=== PATIENT | female | born 1980 ===

== ENCOUNTER 2024-12-06 15:18 | Emergency (ER) | payer OTHER ==
[2024-12-06] MEDS ORDERED: KETOROLAC 30 MG/ML INJ ONE (15:53)
[2024-12-06] MEDS ORDERED: ONDANSETRON 4 MG/2 ML VIAL ONE (15:53)
[2024-12-06] MEDS ORDERED: NA CHLORIDE 0.9% 1,000 ML ONE (15:53)
[2024-12-06 16:03] LABS: Absolute Lymphocytes (CBC) 1.0 K/uL (0.7-4.9); Hematocrit 38.1 % (36.0-45.0); Hemoglobin 12.8 g/dL (12.0-15.0); MCH 27.5 pg (27.0-35.0); MCHC 33.5 g/dL (32.0-36.0); MCV 82.0 fL (80-100); MPV 8.1 fL (7.6-11.3); Nucleated RBC Absolute Count 0.0 (0-0); Nucleated Red Blood Cells % 0.0 % (0-0); RBC Red Blood Cell Count 4.64 M/uL (3.86-4.86); White Blood Count 6.80 thou/uL (4.3-10.9)
[2024-12-06 16:19] LABS: Urine Culture Reflex Order NOT NEEDED; Urine Microscopic Reflex YN ORDER UMIC
[2024-12-06 16:19] LABS: ALT/SGPT 18.0 U/L (13-56); AST/SGOT 12.0 U/L (15-37); Albumin 3.7 g/dL (3.4-5.0); Albumin/Globulin Ratio 0.9 (1.1-1.8); Alkaline Phosphatase 101.0 U/L (45-117); Anion Gap 10.7 mEq/L (5.0-15.0); BUN Blood Urea Nitrogen 15.0 mg/dL (7-18); Globulin 4.1 g/dL (2.3-3.5); Glucose Level 132.0 mg/dL (74-106); Lipase 36.0 U/L (13-75); Potassium 3.7 mEq/L (3.5-5.1)
--- NOTE | 2024-12-06 17:18 | RAD REPORT ---
EXAMINATION: Abdomen Pelvis W Contrast CLINICAL INDICATION: Female, 44 years old.FLANK PAIN TECHNIQUE: CT abdomen and pelvis was performed, after the administration of IV contrast, [facility]. Axial, sagittal and coronal reconstructions were obtained. One or more of the following dose reduction techniques were used: Automated exposure control, adjustment of the mA and/o r kV according to patient size, and/or iterative reconstruction. Unless otherwise specified, incidental findings do not require dedicated imaging follow-up. [id number]. COMPARISON: No prior exams FINDINGS: LOWER CHEST: No acute process identified.No significant pericardial effusion. Moderate hiatal hernia UPPER GI: No significant abnormality. LIVER: Hepatic steatosis, but otherwise unremarkable. GALLBLADDER/BILE DUCTS: Cholelithiasis without CT evidence of acute cholecystitis.? PANCREAS: No mass, ductal dilation, or james-pancreatic fluid. SPLEEN: Unremarkable. ADRENALS: No adrenal masses. KIDNEYS AND URETERS: Mild left-sided hydroureteronephrosis. This is secondary to a 3 mm stone at the left UVJ.No suspicious renal mass.No renal calculi. ABDOMINAL AORTA AND OTHER VESSELS: Normal caliber aorta and IVC. PERITONEUM: No abnormal free fluid. No free air. LYMPH NODES: No pathologic lymphadenopathy. ABDOMINAL WALL: Unremarkable SMALL BOWEL/COLON: Small bowel has normal course and caliber. No colonic wall thickening or pericolon ic inflammatory changes.Appendectomy URINARY BLADDER: Underdistended but grossly unremarkable. REPRODUCTIVE ORGANS: No pathologic process. MUSCULOSKELETAL: Severe disc height loss L5-S1. No acute fracture. ADDITIONAL FINDINGS: None. IMPRESSION: Mild left-sided hydroureteronephrosis secondary to a 3 mm stone at the left UVJ.
[2024-12-06] MEDS ORDERED: TAMSULOSIN 0.4 MG SR CAP ONE (17:27)
--- NOTE | 2024-12-06 17:37 | EDPHYS ---
Physician Documentation [facility] Name: Juhi Chandra Age: 44 yrs Sex: Female : 1980 Arrival Date: 12/06/2024 Time: 15:18 Bed 19 Private MD: ED Physician Jonnie Miller HPI: 12/06 15:56 This 44 yrs old Female presents to ER via Ambulatory with complaints of Possible Kidney sb4 Stone. 15:56 Patient reports left flank pain since yesterday. States that it comes in waves, but sb4 feels similar to when she has had kidney stones in the past. States that she has had some urinary frequency and burning with urination as well. Denies any blood in her urine. Denies any fever or chills. 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 - Infectious Disease History:: Denies. - Social history:: Smoking status: Patient denies any tobacco usage or history of. ROS: 15:56 Constitutional: Negative for fever, chills, and weight loss, sb4 15:56 Abdomen/GI: Positive for nausea and vomiting, 15:56 Back: Positive for flank pain, on the left, 15:56 All other systems are negative, Exam: 15:56 Head/Face: Normocephalic, atraumatic. Eyes: Extra-ocular motions intact. Periorbital sb4 areas with no swelling, redness, or edema. ENT: Mucous membranes moist. Cardiovascular: Regular rate and rhythm with a normal S1 and S2. Respiratory: No increased work of breathing, no retractions or nasal flaring. Abdomen/GI: Soft, non-tender, no distension. Back: No spinal tenderness. No costovertebral tenderness. Full range of motion. Skin: Warm, dry with normal turgor. Normal color with no rashes, no lesions, and no evidence of cellulitis. 15:56 Constitutional: The patient appears alert, awake, uncomfortable, Vital Signs: 15:43 BP 155 / 111; Pulse 79; Resp 17; Temp 97; Pulse Ox 100% ; Weight 90.72 kg; Height 5 ft. hb 3 in. ; Pain 5/10; 16:00 BP 140 / 75; Pulse 58; Resp 16; Pulse Ox 100% ; me1 17:00 BP 133 / 73; Pulse 76; Resp 16; Pulse Ox 100% ; me1 17:51 BP 122 / 72; Pulse 71; Resp 16; Temp 98.5; Pulse Ox 100% ; me1 15:43 Body Mass Index 35.43 (90.72 kg, 160.02 cm) hb 15:43 Pain Scale: Adult hb MDM: 15:20 Medical Screening Exam initiated sb4 15:57 Differential diagnosis: UTI, Pyelonephritis, ureterolithiasis, nephrolithiasis, back sb4 strain. 17:37 Data reviewed: vital signs, nurses notes, lab test result(s), radiologic studies, and sb4 as a result, I will discharge patient. Counseling: I had a detailed discussion with the patient and/or guardian regarding the historical points, exam findings, and any diagnostic results supporting the discharge/admit diagnosis, lab results, radiology results, the need for outpatient follow up, a urologist, to return to the emergency department if symptoms worsen or persist or if there are any questions or concerns that arise at home. ED course: Patient states her pain is improved, she thinks she passed her kidney stone. I will safely discharge her home at this time with urology follow-up. 12/06 15:41 Order name: CBC with Diff; Complete Time: 16:14 sb4 12/06 15:41 Order name: CMP; Complete Time: 16:20 sb4 12/06 15:41 Order name: Lipase; Complete Time: 16:20 sb4 12/06 15:41 Order name: UA Rfx Frankie Cult if indicated; Complete Time: 16:20 sb4 12/06 15:41 Order name: Test, Urine; Complete Time: 16:20 sb4 12/06 15:41 Order name: CT Abd/Pelvis - IV Contrast Only; Complete Time: 17:22 sb4 12/06 15:41 Order name: IV Saline Lock; Complete Time: 15:51 sb4 12/06 15:41 Order name: Labs collected and sent; Complete Time: 15:51 sb4 Administered Medications: 15:59 Drug: Ondansetron IVP 4 mg IVP once; over 2 minutes Route: IVP; Site: right antecubital;me1 16:31 Follow up: Response: No adverse reaction; Nausea is decreased me1 15:59 Drug: NS 0.9% IV 1000 ml IV at 1 bolus Per protocol; to be given as a bolus over 60 me1 minutes Route: IV; Rate: 1 bolus; Site: right antecubital; 17:51 Follow up: Response: No adverse reaction; IV Status: Completed infusion; IV Intake: me1 1000ml 16:00 Drug: TORadol - Ketorolac IVP 15 mg IVP once Route: IVP; Site: right antecubital; me1 16:31 Follow up: Response: No adverse reaction; Pain is decreased me1 17:29 Drug: Flomax PO 0.4 mg PO once Route: PO; me1 17:51 Follow up: Response: No adverse reaction me1 Disposition: 18:28 Co-signature as Attending Physician, Jonnie Miller MD I reviewed the patient's care rn provided by the Advanced Practice Provider and agree with the diagnosis and treatment plan. Disposition Summary: 12/06/24 17:37 Discharge Ordered Notes: Location: Home sb4 Problem: new sb4 Symptoms: have improved sb4 Condition: Stable sb4 Diagnosis - Calculus of kidney with calculus of ureter - left, 3 mm sb4 Followup: sb4 - With: Faustino Briggs MD - When: As needed - Reason: Recheck today's complaints, Re-evaluation by your physician Discharge Instructions: - Discharge Summary Sheet sb4 - Kidney Stones sb4 Forms: - Patient Portal Instructions sb4 - Leadership Thank You Letter sb4 Signatures: Dispatcher [employer] Jonnie Dai MD MD rn Baxter, Heather RN Olga Mcpherson PA-C PA-C sb4 Karen Gray RN RN me1 Corrections: (The following items were deleted from the chart) 15:42 15:42 CBC+H.LAB.BRZ ordered. EDMS EDMS 15:42 15:42 COMPREHENSIVE METABOLIC PANEL+C.LAB.BRZ ordered. EDMS EDMS 15:42 15:42 LIPASE+C.LAB.BRZ ordered. EDMS EDMS 15:42 15:42 UA Rfx Frankie Cult if indicated+U.LAB.BRZ ordered. EDMS EDMS 15:42 15:42 Test, Urine+UC.LAB.BRZ ordered. EDMS EDMS 15 15:42 Abdomen Pelvis W Con+CT.RAD.BRZ ordered. EDMS EDMS 15 15:44 Home Meds: prograssive cerebellar ataxia; hb hb
--- NOTE | 2024-12-06 17:37 | ER ---
Nurse's Notes [facility] Name: Juhi Chandra Age: 44 yrs Sex: Female : 1980 Arrival Date: 12/06/2024 Time: 15:18 Bed 19 Private MD: Diagnosis: Calculus of kidney with calculus of ureter-left, 3 mm Presentation: 12/06 15:43 Chief complaint: Patient states: Left flank since yesterday. Coronavirus screen: At hb this time, the client does not indicate any symptoms associated with coronavirus-19. Ebola Screen: No symptoms or risks identified at this time. Initial Sepsis Screen: Does the patient meet any 2 criteria? No. Patient's initial sepsis screen is negative. Does the patient have a suspected source of infection? No. Patient's initial sepsis screen is negative. Risk Assessment: Do you want to hurt yourself or someone else? Patient reports no desire to harm self or others. Onset of symptoms was December 05, 2024. 15:43 Method Of Arrival: Ambulatory hb 15:43 Acuity: DUSTY 3 hb Triage Assessment: 15:44 General: Appears in no apparent distress. uncomfortable, Behavior is calm, cooperative, hb appropriate for age. Pain: Complains of pain in left flank Pain currently is 5 out of 10 on a pain scale. at worst was 10 out of 10 on a pain scale. GI: Reports nausea. 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 - Infectious Disease History:: Denies. - Social history:: Smoking status: Patient denies any tobacco usage or history of. Screenin:45 [facility] ED Fall Risk Assessment (Adult) History of falling in the last 3 months, me1 including since admission No falls in past 3 months (0 pts) Confusion or Disorientation No (0 pts) Intoxicated or Sedated No (0 pts) Impaired Gait No (0 pts) Mobility Assist Device Used No (0 pt) Altered Elimination No (0 pt) Score/Fall Risk Level 0 - 2 = Low Risk Maintained a safe environment, Provided non-skid footwear, Hourly rounding (assess needs \T\ fall precautionary measures) done. Abuse screen: Denies threats or abuse. Nutritional screening: No deficits noted. Tuberculosis screening: No symptoms or risk factors identified. Assessment: 15:45 General: Appears uncomfortable, well groomed, well developed, well nourished, Behavior me1 is calm, cooperative, appropriate for age, Reports left flank pain since yesterday. Reports some nausea. Pain: Complains of pain in left flank Pain radiates to left lower quadrant Pain currently is 5 out of 10 on a pain scale. Quality of pain is described as sharp, shooting, Pain began suddenly, 1 day ago. Is continuous. Neuro: Level of Consciousness is awake, alert, obeys commands, Oriented to person, place, time, situation, Appropriate for age. Cardiovascular: Patient's skin is warm and dry. Respiratory: Airway is patent Respiratory effort is even, unlabored, Respiratory pattern is regular, symmetrical. GI: Abdomen is non-distended, Bowel sounds present X 4 quads. Abd is soft X 4 quads. : Reports pain in left flank(s), lower quadrant(s) since yesterday. EENT: No signs and/or symptoms were reported regarding the EENT system. Derm: Skin is intact, is healthy with good turgor, Skin is normal. Musculoskeletal: Circulation, motion, and sensation intact. Range of motion: intact in all extremities. Vital Signs: 15:43 BP 155 / 111; Pulse 79; Resp 17; Temp 97; Pulse Ox 100% ; Weight 90.72 kg; Height 5 ft. hb 3 in. ; Pain 5/10; 16:00 BP 140 / 75; Pulse 58; Resp 16; Pulse Ox 100% ; me1 17:00 BP 133 / 73; Pulse 76; Resp 16; Pulse Ox 100% ; me1 17:51 BP 122 / 72; Pulse 71; Resp 16; Temp 98.5; Pulse Ox 100% ; me1 15:43 Body Mass Index 35.43 (90.72 kg, 160.02 cm) hb 15:43 Pain Scale: Adult hb ED Course: 15:19 Patient arrived in ED. ts1 15:19 Olga Escobar PA-C is PHCP. sb4 15:19 Jonnie Miller MD is Attending Physician. sb4 15:44 Triage completed. hb 15:44 Arm band placed on right wrist. hb 15:45 Karen Gray, HALINA is Primary Nurse. me1 15:45 Patient has correct armband on for positive identification. Bed in low position. Call me1 light in reach. Side rails up X2. Provided Education on: POC. Verbalized understanding.. Client placed on continuous cardiac and pulse oximetry monitoring. NIBP monitoring applied. Pulse ox on. NIBP on. 15:45 No provider procedures requiring assistance completed. me1 15:51 Initial lab(s) drawn, by me, sent to lab. Inserted saline lock: 22 gauge in right me1 antecubital area, using aseptic technique. 15:51 CBC with Diff Sent. me1 15:51 CMP Sent. me1 15:51 Lipase Sent. me1 15:59 Test, Urine Sent. me1 15:59 UA Rfx Frankie Cult if indicated Sent. me1 16:00 Urine collected: clean catch specimen, clear. me1 17:02 CT Abd/Pelvis - IV Contrast Only In Process Unspecified. EDMS 17:37 Faustino Briggs MD is Referral Physician. sb4 17:55 IV discontinued, intact, bleeding controlled, No redness/swelling at site. Pressure me1 dressing applied. Administered Medications: 15:59 Drug: Ondansetron IVP 4 mg IVP once; over 2 minutes Route: IVP; Site: right antecubital;me1 16:31 Follow up: Response: No adverse reaction; Nausea is decreased me1 15:59 Drug: NS 0.9% IV 1000 ml IV at 1 bolus Per protocol; to be given as a bolus over 60 me1 minutes Route: IV; Rate: 1 bolus; Site: right antecubital; 17:51 Follow up: Response: No adverse reaction; IV Status: Completed infusion; IV Intake: me1 1000ml 16:00 Drug: TORadol - Ketorolac IVP 15 mg IVP once Route: IVP; Site: right antecubital; me1 16:31 Follow up: Response: No adverse reaction; Pain is decreased me1 17:29 Drug: Flomax PO 0.4 mg PO once Route: PO; me1 17:51 Follow up: Response: No adverse reaction me1 Medication: 15:45 VIS not applicable for this client. me1 Intake: 17:51 IV: 1000ml; Total: 1000ml. me1 Outcome: 17:37 Discharge ordered by . [email or web address] 17:55 Discharged to home ambulatory, with significant other, me1 17:55 Condition: stable 17:55 Discharge instructions given to patient, significant other, Instructed on discharge instructions, follow up and referral plans. Demonstrated understanding of instructions, follow-up care, 17:56 Patient left the ED. me1 Signatures: Dispatcher [employer] EDQiana Zurita RN RN Olga Escobar, PABrigidaC PABrigidaC [email or web address] Jael Hutchison PAS PAS ts1 Karen Gray RN RN me1 Corrections: (The following items were deleted from the chart) 15:45 15:44 Home Meds: prograssive cerebellar ataxia; [facility]
[2024-12-06 18:28] VITALS: O2SAT 100
[2024-12-06 18:35] VITALS: BP 122/72; TEMP 98.5
== END 2024-12-06 17:56 | disposition home or self-care (01) ==
LOC: ER 15:18
DX: N20.2 Calculus of kidney with calculus of ureter (principal); Z87.442 Personal history of urinary calculi
CPT/HCPCS: 96361; 85025; 81001; 36415; 81025; 83690; 80053; 74177; 96375; 96374; 99284; Q9967; J2405; J7030